=== PATIENT | male | born 1950 | race Caucasian/White ===

== ENCOUNTER 2020-05-15 13:31 | Outpatient (REF) | payer MEDICARE, SELFPAY ==
--- NOTE | 2020-05-15 13:37 | XR_ITS ---
EXAMINATION: XR LUMBOSACRAL SPINE CLINICAL INFORMATION: Low back pain. COMPARISON: None TECHNIQUE: Three views of the lumbosacral spine. FINDINGS: There is normal lumbar lordosis. The vertebral heights, alignment and disc heights are normal. There is mild loss of disc heights. No visible acute fracture, dislocation or lytic process seen. There is aortoiliac bilateral graft stents. The paravertebral soft tissues are normal. XR/XR lumbar spine 2-3V IMPRESSION: Mild degenerative disc changes throughout lumbar spine. No visible acute fracture, dislocation or lytic process seen.
== END 2020-05-15 13:32 | disposition home or self-care (01) ==
LOC: HO.XRAY 13:31
PROVIDERS: PCP Internal Medicine; Visit Provider Internal Medicine
DX: M54.5 Low back pain (principal)
CPT/HCPCS: 72100

== ENCOUNTER 2020-05-27 12:52 | Outpatient (REF) | payer MEDICARE, SELFPAY ==
--- NOTE | 2020-05-27 | US_ITS ---
EXAMINATION: US SCROTUM CLINICAL INFORMATION: Pain in testicle. COMPARISON: Scrotal ultrasounds dated 02/20/2020 and 12/20/2012. TECHNIQUE: A sonogram of the scrotum was performed assessing allred-scale appearance and color Doppler flow. Spectral Doppler analysis of the arterial and venous flow were performed in the left testis. FINDINGS: RIGHT: Surgically absent. LEFT: Left testicle measures 4.31 x 1.90 x 3.32 cm, volume 14.2 mL. There is a 0.6 x 0.7 x 0.9 cm minimally complex cyst with single septation in the inferior left testicle. This is similar to previous exam. Spectral Doppler analysis of the arterial and venous flow is normal in the left testis. Left epididymal head is normal in size. The tail of the left epididymis appears slightly prominent and heterogeneous in echotexture with hyperechoic areas. This is similar to recent exam from February 2020. Left epididymal Doppler flow is normal. No left hydrocele or varicocele is seen. US/US scrotum IMPRESSION: Stable slightly complex left testicular cyst measuring 6 x 7 x 9 mm with single thin septation. Slightly prominent heterogeneous-appearing epididymal tail.
== END 2020-05-27 12:53 | disposition home or self-care (01) ==
LOC: HO.US 12:52
PROVIDERS: PCP Internal Medicine; Visit Provider Urology
DX: N50.819 Testicular pain, unspecified (principal)
CPT/HCPCS: 76870

== ENCOUNTER 2020-05-30 12:51 | Outpatient (REF) | payer MEDICARE, SELFPAY ==
[2020-05-30 14:41] LABS: MANUAL DIFF FLAG NO
[2020-05-30 14:48] LABS: Basophils Percent Auto 0.2 % (0-2); Eosinophils Absolute Auto 0.2 X10*3/uL (0.0-0.4); Eosinophils Percent Auto 3.1 % (0-4); Hematocrit 40.6 % (42-52); Hemoglobin 13.6 g/dl (14.0-18.0); Imm Gran Abs Auto 0.03 X10*3/uL (0.00-0.03); Imm Gran Pct Auto 0.6 % (0.0-0.4); Lymphocytes Percent Auto 21.1 % (20-40); Mean Corpuscular HGB Conc 33.5 g/dl (31.0-36.0); Mean Corpuscular Volume 98.5 fL (80-98); Mean Platelet Volume 9.1 fL (9.4-12.4); Monocytes Absolute Auto 0.3 X10*3/uL (0.1-1.2); Monocytes Percent Auto 6.8 % (2-11); Neutrophils Absolute Auto 3.3 X10*3/uL (2.0-8.3); Neutrophils Percent Auto 68.2 % (45-73); Platelet Count 167 X10*3/uL (160-400); Red Blood Count 4.12 X10*6/uL (4.60-5.80); White Blood Count 4.9 X10*3/uL (4.8-10.8)
[2020-05-30 14:53] LABS: Glucose Urine UA NEG (NEG); Leukocyte Esterase Urine NEG (NEG); Nitrite Urine NEG (NEG); Urine Blood 2+ (NEG); Urine Ketones NEG (NEG); Urine Protein TRACE MG/DL (NEG-TRACE)
[2020-05-30 14:54] LABS: Appearance Urine CLEAR; Color Urine YELLOW
[2020-05-30 15:00] LABS: Squamous Epithelial Cell Urine TRACE /LPF; WBC Urine 0-2 /HPF (0-4)
[2020-05-30 15:18] LABS: Alanine Aminotransferase 12 U/L (0-40); Albumin Level 4.2 g/dL (3.5-5.0); Alkaline Phosphatase 75 U/L (39-117); Anion Gap 15 (12-20); Aspartate Amino Transferase 15 U/L (5-37); Bilirubin Total 0.4 mg/dL (0.0-1.0); Blood Urea Nitrogen 23 mg/dL (9-16); Calcium 8.8 mg/dL (8.4-10.2); Carbon Dioxide 26 mmol/L (22-29); Chloride 100 mmol/L (96-108); Estimated Glomerular Filt Rate 45; Glucose Random 92 mg/dL (60-115); Potassium 4.7 mmol/l (3.3-5.1); Sodium 136 mmol/L (135-145); Total Protein 7.3 g/dL (6.5-8.0)
[2020-05-30 15:30] LABS: Thyroid Stimulating Hormone 1.25 uIU/mL (0.32-4.0)
== END 2020-05-30 12:52 | disposition home or self-care (01) ==
LOC: HO.LAB 12:51
PROVIDERS: PCP Internal Medicine; Visit Provider Internal Medicine
DX: I71.4 Abdominal aortic aneurysm, without rupture (principal); F41.9 Anxiety disorder, unspecified; M54.5 Low back pain
CPT/HCPCS: 36415; 80053; 81001; 84443; 85025

== ENCOUNTER 2020-06-18 12:38 | Outpatient (REF) | payer MEDICARE, SELFPAY ==
[2020-06-18 14:26] LABS: Anion Gap 14 (12-20); Blood Urea Nitrogen 19 mg/dL (9-16); Calcium 9.3 mg/dL (8.4-10.2); Carbon Dioxide 26 mmol/L (22-29); Chloride 101 mmol/L (96-108); Estimated Glomerular Filt Rate 51; Potassium 4.9 mmol/l (3.3-5.1); Sodium 136 mmol/L (135-145)
[2020-06-18 14:43] LABS: Glucose Urine UA NEG (NEG); Leukocyte Esterase Urine NEG (NEG); Nitrite Urine NEG (NEG); Specific Gravity - Urine <= 1.005 (1.005-1.025); Urine Blood 2+ (NEG); Urine Ketones NEG (NEG); Urine Protein 1+ MG/DL (NEG-TRACE)
[2020-06-18 14:49] LABS: Appearance Urine CLEAR; Color Urine YELLOW
[2020-06-18 15:07] LABS: WBC Urine 0 /HPF (0-4)
[2020-06-18 15:20] LABS: Creatinine Urine 23.55 mg/dL; Protein/Creatinine Ratio, Ur 1.49 (<0.2); Total Protein Urine Random 35 mg/dL (<12)
== END 2020-06-18 12:39 | disposition home or self-care (01) ==
LOC: HO.LAB 12:38
PROVIDERS: PCP Internal Medicine; Visit Provider Internal Medicine Hypertension Specialist
DX: I13.10 Hypertensive heart and chronic kidney disease without heart failure, with stage 1 through stage 4 chronic kidney disease, or unspecified chronic kidney disease (principal); I71.4 Abdominal aortic aneurysm, without rupture; Q63.1 Lobulated, fused and horseshoe kidney
CPT/HCPCS: 80051; 81001; 82310; 82565; 84156; 84520

== ENCOUNTER → 2020-08-02 13:26 | Outpatient (BNVA) | payer MEDICARE, SELFPAY | PROVIDERS: PCP Internal Medicine; Referring Provider Internal Medicine; Visit Provider Urology | DX: Z76.89 Persons encountering health services in other specified circumstances (principal) | CPT/HCPCS: Q3014 ==

== ENCOUNTER → 2020-08-05 13:10 | Outpatient (BNVA) | payer MEDICARE, SELFPAY | PROVIDERS: PCP Internal Medicine; Visit Provider Internal Medicine Cardiovascular Disease | DX: R00.2 Palpitations (principal); R06.02 Shortness of breath; Z95.2 Presence of prosthetic heart valve | CPT/HCPCS: 93005; 99212 ==

== ENCOUNTER → 2020-08-12 09:16 | Outpatient (REF) | payer MEDICARE, SELFPAY ==
--- NOTE | 2020-08-12 09:25 | CA_ITS ---
Transthoracic Echocardiogram Patient (Last, First, Middle): Sander Carpio J Gender: Male Date of : 1950 Age: 69 Procedure Date: 08/12/2020 Procedure Type: Transthoracic Echocardiogram Location: OP Height: 187.96 cm Weight: 88.45 kg BSA: 2.15 m2 Heart Rate: bpm BP: 128 / 80 mmHg Window Treatment Installer: Referring MD: Skinny Randhawa MD Symptoms: Z95.2 - Presence of prosthetic heart valve Study Quality: Fair ECG Rhythm: Sinus Conclusions: - The left ventricular systolic function is normal. The visually estimated ejection fraction is between 60-65%. - By history, bioprosthetic aortic valve. Based on gradients, normal function. Findings Left Ventricle Normal left ventricular cavity size. There is mildly increased left ventricular wall thickness. The left ventricular systolic function is normal. The visually estimated ejection fraction is between 60-65%. There is no evidence of regional wall motion abnormalities. Diastolic function is normal for age. Right Ventricle The right ventricle was not well visualized. Normal right ventricular cavity size. Likely normal function. Atria The left atrium is normal in size. The right atrium is normal in size. Aortic Valve The prosthetic aortic valve appears to be functioning normally. The aortic valve was not well visualized. The peak aortic velocity is 2.18 m/s with a calculated peak gradient of 19 mmHg. The mean gradient is 12 mmHg. The aortic valve area is 1.68 cm2. There is no aortic valve regurgitation. By history bioprosthetic aortic valve. Mitral Valve The mitral valve appears normal. There is no mitral valve regurgitation. There is no mitral valve stenosis. Pulmonic Valve The pulmonic valve was not well visualized. Tricuspid Valve There is trace tricuspid valve regurgitation. The pulmonary artery systolic pressure is normal. Great Vessels The aorta was not well visualized. The aortic annulus is normal in size. Venous The inferior vena cava is normal in size and collapses greater than 50% with inspiration. Pericardium/Pleural There is no evidence of pericardial effusion. Prior Study Comparison No significant change compared to prior study dated: 07/26/2019. Measurements 2D Linear Measurements IVSd: 1.22 0.6-0.9/0.6-1.0 cm LVIDd: 4.17 3.9-5.3/4.2-5.9 cm LVIDd Index: 1.94 2.4-3.2/2.2-3.1 cm/m2 LVIDs: 2.72 2.0-3.6 cm LVPWd: 1.26 0.7-1.1 cm Ao Root: 2.80 2.1-3.5 cm LA Diam: 3.60 2.7-3.8/3.0-4.0 cm LAIDs Index: 1.67 1.5-2.3 cm/m2 LV Mass: 230.43 67-162/88-224 g LV Mass Index: 107.18 43-95/49-115 g/m2 LVOT Diam: 2.00 3.0+(-)1.3 cm 2D Systolic Function EF 4C: 49.50 >55% EF 2C: 60.10 >55% Mitral Valve MV Pk E: 0.52 MV PK A: 0.68 MV Decel Time: 290.00 E/A: 0.80 E'Lateral: 10.30 E'Medial: 4.35 E/E' Med: 11.90 E/E' Lat: 5.00 PHT: 85.00 MVA PHT: 2.59 Decel [place]: 1.79 Aortic Valve AoV Pk James: 2.18 AoV Mn James: 1.61 AoV VTI: 0.54 AoV Pk Grad: 19.00 Aov Mn Grad: 12.00 TANG Cont.VTI: 1.68 LVOT LVOT Pk James: 1.15 LVOT Mn James: 0.90 LVOT VTI: 0.29 LVOT Pk Grad: 5.00 LVOT Mn Grad: 4.00 LVOT Diam: 2.00 LVOT Area: 3.14 Diastolic Function MV Pk E: 0.52 MV Pk A: 0.68 E/A: 0.80 E'Medial: 4.35 E/E' Med: 11.90 E' Laterial: 10.30 E/E' Lat: 5.00 Tricuspid Valve TR Pk James: 2.22 TR Pk Grad: 20.00 RA Press: 3.00 RVSP: 23.00 Great Vessels Aorta Ao Root-2D: 2.80 2.0-3.7 cm Pulmonary Valve PV Pk James: 0.79 Peak PV Grad: 2.00 Updated in Other Vendor System with Status of Final Elgin Olsen MD electronically signed on 08/13/2020 11:59:05 AM with status of Final
== END ==
LOC: HO.CARD 09:16
PROVIDERS: PCP Internal Medicine; Visit Provider Internal Medicine Cardiovascular Disease
DX: Z95.2 Presence of prosthetic heart valve (principal)
CPT/HCPCS: 93306

== ENCOUNTER → 2020-09-10 15:25 | Outpatient (BNVA) | payer MEDICARE, SELFPAY | PROVIDERS: PCP Internal Medicine; Visit Provider Internal Medicine Gastroenterology | DX: K59.00 Constipation, unspecified (principal) | CPT/HCPCS: 99212 ==

== ENCOUNTER 2020-10-24 08:58 | Outpatient (REF) | payer MEDICARE, SELFPAY ==
[2020-10-24 09:57] LABS: Basophils Percent Auto 0.2 % (0-2); Eosinophils Absolute Auto 0.1 X10*3/uL (0.0-0.4); Eosinophils Percent Auto 2.8 % (0-4); Hematocrit 38.3 % (42-52); Hemoglobin 12.5 g/dl (14.0-18.0); Imm Gran Abs Auto 0.01 X10*3/uL (0.00-0.03); Imm Gran Pct Auto 0.2 % (0.0-0.4); Lymphocytes Absolute Auto 0.6 X10*3/uL (1.2-4.9); Lymphocytes Percent Auto 14.7 % (20-40); MANUAL DIFF FLAG SCAN; Mean Corpuscular HGB Conc 32.6 g/dl (31.0-36.0); Mean Corpuscular Hemoglobin 32.1 pg (27.0-33.0); Mean Corpuscular Volume 98.5 fL (80-98); Mean Platelet Volume 8.6 fL (9.4-12.4); Monocytes Absolute Auto 0.3 X10*3/uL (0.1-1.2); Monocytes Percent Auto 6.8 % (2-11); Neutrophils Absolute Auto 3.2 X10*3/uL (2.0-8.3); Neutrophils Percent Auto 75.3 % (45-73); Platelet Count 159 X10*3/uL (160-400); Red Blood Count 3.89 X10*6/uL (4.60-5.80); Red Cell Distribution Width 13.1 % (11.0-16.0); SCAN SMEAR FLAG 1; White Blood Count 4.3 X10*3/uL (4.8-10.8)
[2020-10-24 10:09] LABS: Alanine Aminotransferase 10 U/L (0-40); Albumin Level 4.2 g/dL (3.5-5.0); Alkaline Phosphatase 78 U/L (39-117); Anion Gap 11 (12-20); Aspartate Amino Transferase 14 U/L (5-37); Bilirubin Total 0.3 mg/dL (0.0-1.0); Blood Urea Nitrogen 19 mg/dL (9-16); Calcium 9.3 mg/dL (8.4-10.2); Carbon Dioxide 29 mmol/L (22-29); Chloride 102 mmol/L (96-108); Cholesterol 228 mg/dL; Estimated Glomerular Filt Rate 46; Glucose Random 111 mg/dL (60-115); HDL Cholesterol 53 mg/dL; LDL Cholesterol Calculated 158 mg/dl; Potassium 5.2 mmol/L (3.3-5.1); Sodium 137 mmol/L (135-145); Total Protein 7.2 g/dL (6.5-8.0); Triglycerides 85 mg/dL
[2020-10-24 10:11] LABS: B Type Natriuretic Peptide 109 pg/mL (<100)
[2020-10-24 10:26] LABS: SLIDE REVIEW VERIFIED
[2020-10-24 10:42] LABS: Free T4 (Free Thyroxine) 0.95 ng/dL (0.71-1.85); Prostate Specific Antigen Scr 10.12 ng/mL (<0.05-4.0); Thyroid Stimulating Hormone 1.18 uIU/mL (0.32-4.0)
[2020-10-24 10:54] LABS: Folate 8.3 ng/mL (> or = 4.0); Vitamin B12 202 pg/mL (200-900)
== END 2020-10-24 08:59 | disposition home or self-care (01) ==
LOC: HO.LAB 08:58
PROVIDERS: PCP Internal Medicine; Visit Provider Internal Medicine
DX: Z12.5 Encounter for screening for malignant neoplasm of prostate (principal); I71.4 Abdominal aortic aneurysm, without rupture; E78.00 Pure hypercholesterolemia, unspecified
CPT/HCPCS: 36415; 80053; 80061; 82607; 82746; 83880; 84153; 84439; 84443; 85025

== ENCOUNTER 2020-10-28 07:58 | Outpatient (REF) | payer MEDICARE, SELFPAY ==
--- NOTE | ~2020-10-28 | CT_ITS ---
EXAMINATION: CT ABDOMEN AND PELVIS WITH CONTRAST CLINICAL INFORMATION: Benign prostatic hyperplasia. Allergic to contrast. COMPARISON: CT abdomen and pelvis 04/09/2020 TECHNIQUE: Multidetector volumetric images were obtained from the superior aspect of the liver through the pubic symphysis following administration 85 mL of Omnipaque 350 intravenous contrast. Sagittal and coronal reformatted images were obtained on the technologist's workstation. Oral contrast: No. This CT examination was performed using dose optimization techniques as appropriate, variously including the following: *Automated exposure control *Adjustment of mA and/or kV according to patient size (this includes techniques or standardized protocols for targeted exams where dose is matched to indication/reason for exam; i.e. extremities or head) *Use of iterative reconstruction technique DLP: 761 mGy-cm FINDINGS: LUNG BASES: Emphysema. Heart size is normal. LIVER, GALLBLADDER, AND BILIARY TREE: The liver is normal in size, shape, and attenuation. No focal hepatic lesion or biliary ductal dilatation is present. The gallbladder is unremarkable with no evidence of radiopaque gallstones, gallbladder wall thickening, or obvious pericholecystic inflammatory changes. PANCREAS: Unremarkable. SPLEEN: Unremarkable. ADRENAL GLANDS: The adrenal glands are unremarkable. 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 No hydronephrosis seen. BLADDER: Unremarkable. GASTROINTESTINAL TRACT: There is scattered stool, diverticula and gas seen throughout the colon without any significant distention. The small bowel loops are normal caliber. The appendix is normal caliber. ABDOMINAL WALL: No significant hernia is appreciated. LYMPH NODES: Normal. VASCULAR: There is infrarenal aneurysmal dilatation of the abdominal aorta with the largest diameter measuring 9.10 x 8.4 cm, similar to previous study. There is an aortoiliac graft stent extending above the renal arteries into the common iliac arteries. There is circumferential thrombus surrounding the aortic graft and within left common iliac and abdominal aortic graft. There is normal patency of both common iliac arteries and the lumen within the aortic graft. PELVIC VISCERA: There is diffuse heterogenous enlarged prostate gland extending into the base of bladder. The periprostatic fat planes are preserved. OSSEOUS STRUCTURES: No lytic or sclerotic process seen. CT/CT abdomen pelvis w con IMPRESSION: No acute intra-abdominal process seen. Colonic diverticulosis without diverticulitis. Mvkunwaf-qi-lcagzj prostate enlargement with heterogeneity extending into the base of bladder. Stable infra-abdominal aortic aneurysm and aortoiliac graft stent present with intraluminal and extraluminal thrombus.
== END 2020-10-28 07:59 | disposition home or self-care (01) ==
LOC: HO.CT 07:58
PROVIDERS: Visit Provider Internal Medicine
DX: I71.4 Abdominal aortic aneurysm, without rupture (principal); N40.0 Benign prostatic hyperplasia without lower urinary tract symptoms
CPT/HCPCS: 74177; Q9967

== ENCOUNTER 2020-11-11 10:51 | Outpatient (REF) | payer MEDICARE, SELFPAY ==
--- NOTE | ~2020-11-11 | CT_ITS ---
EXAMINATION: CT CHEST SCREENING CLINICAL INFORMATION: History of nicotine. COMPARISON: CT chest 09/08/2019. TECHNIQUE: Multidetector volumetric CT imaging of the chest is performed without contrast using low dose technique. Additional 2D coronal and sagittal reformatted images and axial 3D maximum intensity projection (MIP) images are generated on the CT workstation. This CT examination was performed using dose optimization techniques as appropriate, variously including the following: *Automated exposure control *Adjustment of mA and/or kV according to patient size (this includes techniques or standardized protocols for targeted exams where dose is matched to indication/reason for exam; i.e. extremities or head) *Use of iterative reconstruction technique DLP: 65 mGy-cm. FINDINGS: LUNGS: Lungs are well expanded with mild atelectatic changes right upper lobe posterior segment. There is a new 3 mm nodule right upper lobe axial image 154/6, a 6 mm nodule right upper lobe axial image 169/6, a 3 mm nodule right lower lobe adjacent to major fissure axial image 383/6, stable and fine nodular thickening right major fissure axial image 293/6. No acute pneumonic consolidation seen. MEDIASTINUM: The thyroid lobes are symmetrical and normal. The central trachea and the bronchi are widely patent. There is atherosclerotic calcification of thoracic arch without aneurysmal dilatation. There is a benign pretracheal 1.6 cm wide lymph node with central fatty hilum. Heart size and the great vessels are normal caliber. No pericardial effusion seen. PLEURA: There is no pleural effusion. No pleural mass or thickening. AXILLA: No lymphadenopathy. UPPER ABDOMEN: Visualized liver, spleen, pancreas and bilateral adrenal glands are unremarkable. Is aneurysmal dilatation of the proximal abdominal aorta with an aortic stent in place, similar to previous study. OSSEOUS STRUCTURES: There is moderate spondylosis dorsal spine. No lytic process seen. There are median sternotomy sutures from previous intervention. CT/CT lung screening IMPRESSION: There are 2 new nodules in the right upper lobe. The other 2 nodules including the major fissure nodule, likely lymph node, are stable. ASSESSMENT: Lung-RADS category 3: Probably Benign. RECOMMENDATION: 6-month low-dose CT chest.
== END 2020-11-11 10:52 | disposition home or self-care (01) ==
LOC: HO.CT 10:51
PROVIDERS: Visit Provider Surgery
DX: Z12.2 Encounter for screening for malignant neoplasm of respiratory organs (principal); Z87.891 Personal history of nicotine dependence
CPT/HCPCS: 71271

== ENCOUNTER 2020-12-11 07:33 | Day surgery (SDC) | payer MEDICARE, SELFPAY ==
[2020-12-04 14:50] VITALS: BMI 24.6
--- NOTE | 2020-12-10 09:59 | P.CONAN_ITS ---
Documented by User: Diane Santiago 12/10/20 10:21 HPI - Anesthesia Eval Consult details Narrative: 70yo M for Upper Endoscopy and Colonoscopy AAA s/p repair 2012, endoleak with repair/graft 2016, imaging shows patent endograft, sac stable per vascu S/P AVR 2014 *mult med allergies* PMFSH Active Problems Active Problems: All Active Problems (Updated 12/04/20 @ 14:47 by Sophia Salas) Constipation (Acute) Low back pain (Acute) Palpitations (Acute) SOB (shortness of breath) on exertion (Acute) Enlarged prostate (Acute) Renal insufficiency (Acute) Vitamin B 12 deficiency (Acute) Pulmonary nodules (Acute) Hypercholesterolemia (Acute) Personal history of nicotine dependence (Acute) S/P AVR (Acute) Testicular cyst (Acute) Elevated PSA (Acute) AAA (abdominal aortic aneurysm) (Acute) COPD (chronic obstructive pulmonary disease) (Acute) Anxiety (Acute) GERD (gastroesophageal reflux disease) (Acute) Past Medical History Medical History (Updated 12/04/20 @ 14:47 by Sophia Salas) AAA (abdominal aortic aneurysm) Anxiety Aortic stenosis BPH (benign prostatic hyperplasia) COPD (chronic obstructive pulmonary disease) Depression Elevated PSA Erectile dysfunction GERD (gastroesophageal reflux disease) History of TMJ disorder Horseshoe kidney Hypercholesterolemia Melanoma Personal history of nicotine dependence Polyp of duodenum Testicular cyst Tubular adenoma of colon Family History Family History Father No problems noted. Mother Alcoholism Paternal Uncle Myocardial infarction Surgical History Surgical History (Updated 12/04/20 @ 14:45 by Sophia Salas) Chronic epididymitis History of esophagogastroduodenoscopy (EGD) History of melanoma excision History of repair of rotator cuff History of transurethral resection of prostate Hx of colonoscopy S/P AVR Social History Social History Alcohol intake: current Alcohol intake frequency: holidays/special occasions only Are you DNR?: No Advance Directives: No Advance Directives Information Provided: No Advance Directives on File: No Recently lost weight without trying: No Eating poorly because of decreased appetite: No Nutrition Risks: No Nutritional Risk Meds Allergies Allergy/AdvReac Type Severity Reaction Status Date / Time cephalexin [CEPHALEXIN] Allergy Intermediate HIVES/ITCH Verified 12/04/20 14:27 naproxen [NAPROXEN] Allergy Intermediate RASH/SHAKES Verified 12/04/20 14:27 ,SOB atorvastatin Allergy Unknown muscle px Verified 12/04/20 14:27 clindamycin Allergy Unknown gerd Verified 12/04/20 14:27 ibuprofen [From Motrin] Allergy Unknown RASH,SOB, Verified 12/04/20 14:27 rash, rash penicillin V Allergy Unknown rash Verified 12/04/20 14:27 pravastatin Allergy Unknown unknown Verified 12/04/20 14:27 aspirin AdvReac Unknown Unknown Verified 12/04/20 14:27 Home Medications Medication Instructions Recorded Confirmed Last Taken Type acetaminophen 325 mg capsule 325 mg PO QID PRN 05/10/20 12/04/20 Unknown History albuterol sulfate 90 mcg/actuation 2 puff INHALATION Q4-6H PRN 05/10/20 12/04/20 12/11/20 History aerosol inhaler amitriptyline 50 mg tablet 50 mg PO BEDTIME 05/10/20 12/04/20 Unknown History coenzyme [id number]-[id number] E 100 mg-100 cap PO 05/10/20 11/15/20 Unknown History unit capsule dicyclomine 20 mg tablet 20 mg PO TID 05/10/20 12/04/20 Unknown History methylcellulose (laxative) 500 mg 500 mg PO DAILY 05/10/20 12/04/20 Unknown History tablet rosuvastatin 10 mg tablet 10 mg PO DAILY 05/10/20 12/04/20 Unknown History wleulgmtwd-zaztwtqmfgixw-osuebhfs 1 tab PO Q8H PRN 08/05/20 12/04/20 Unknown History 50 mg-325 mg-40 mg tablet clonazepam 1 mg tablet 1 mg PO BID 08/05/20 12/04/20 12/11/20 History lactulose 10 gram/15 mL oral 30 ml PO BID PRN 08/05/20 12/04/20 Unknown History solution Exam Exam Date and Time: December 10, 2020 0959 Height,Weight and Vital Signs: Height 6 ft 2 in Weight 87.09 kg Pertinent Lab Results Pertinent Lab Results: Laboratory Tests 10/24/20 10/24/20 09:12 09:12 WBC 4.3 L Hgb 12.5 L Hct 38.3 L Plt Count 159 L Sodium 137 Potassium 5.2 H Chloride 102 Carbon Dioxide 29 BUN 19 H Creatinine 1.52 H Narrative Narrative: EKG 07/2020 Baseline artifact with normal sinus rhythm with first-degree AV block with no significant ST T wave changes ECHO 07/2020 Conclusions: - The left ventricular systolic function is normal. The visually estimated ejection fraction is between 60-65%. - By history, bioprosthetic aortic valve. Based on gradients, normal function. CT abdomen pelvis w con 10/2020 IMPRESSION: No acute intra-abdominal process seen. Colonic diverticulosis without diverticulitis. Xutbvzzg-oe-tchdpx prostate enlargement with heterogeneity extending into the base of bladder. Stable infra-abdominal aortic aneurysm and aortoiliac graft stent present with intraluminal and extraluminal thrombus. Assessment and Plan Assessment Anesthesia Assessment: Chart Reviewed Documented by User: Analilia Au 12/11/20 08:02 [facility] Past Medical History Medical History (Updated 12/04/20 @ 14:47 by Sophia Salas) AAA (abdominal aortic aneurysm) Anxiety Aortic stenosis BPH (benign prostatic hyperplasia) COPD (chronic obstructive pulmonary disease) Depression Elevated PSA Erectile dysfunction GERD (gastroesophageal reflux disease) History of TMJ disorder Horseshoe kidney Hypercholesterolemia Melanoma Personal history of nicotine dependence Polyp of duodenum Testicular cyst Tubular adenoma of colon Family History Family History Father No problems noted. Mother Alcoholism Paternal Uncle Myocardial infarction Surgical History Surgical History (Updated 12/04/20 @ 14:45 by Sophia Salas) Chronic epididymitis History of esophagogastroduodenoscopy (EGD) History of melanoma excision History of repair of rotator cuff History of transurethral resection of prostate Hx of colonoscopy S/P AVR Social History Social History Alcohol intake: current Alcohol intake frequency: holidays/special occasions only Are you DNR?: No Advance Directives: No Advance Directives Information Provided: No Advance Directives on File: No Recently lost weight without trying: No Eating poorly because of decreased appetite: No Nutrition Risks: No Nutritional Risk Meds Allergies Allergy/AdvReac Type Severity Reaction Status Date / Time cephalexin [CEPHALEXIN] Allergy Intermediate HIVES/ITCH Verified 12/04/20 14:27 naproxen [NAPROXEN] Allergy Intermediate RASH/SHAKES Verified 12/04/20 14:27 ,SOB atorvastatin Allergy Unknown muscle px Verified 12/04/20 14:27 clindamycin Allergy Unknown gerd Verified 12/04/20 14:27 ibuprofen [From Motrin] Allergy Unknown RASH,SOB, Verified 12/04/20 14:27 rash, rash penicillin V Allergy Unknown rash Verified 12/04/20 14:27 pravastatin Allergy Unknown unknown Verified 12/04/20 14:27 aspirin AdvReac Unknown Unknown Verified 12/04/20 14:27 Home Medications Medication Instructions Recorded Confirmed Last Taken Type acetaminophen 325 mg capsule 325 mg PO QID PRN 05/10/20 12/04/20 Unknown History albuterol sulfate 90 mcg/actuation 2 puff INHALATION Q4-6H PRN 05/10/20 12/04/20 12/11/20 History aerosol inhaler amitriptyline 50 mg tablet 50 mg PO BEDTIME 05/10/20 12/04/20 Unknown History coenzyme Q80-ynxxiwl E 100 mg-100 cap PO 05/10/20 11/15/20 Unknown History unit capsule dicyclomine 20 mg tablet 20 mg PO TID 05/10/20 12/04/20 Unknown History methylcellulose (laxative) 500 mg 500 mg PO DAILY 05/10/20 12/04/20 Unknown History tablet rosuvastatin 10 mg tablet 10 mg PO DAILY 05/10/20 12/04/20 Unknown History wzzhqifijx-uasosomwfykpn-nhbjxdei 1 tab PO Q8H PRN 08/05/20 12/04/20 Unknown History 50 mg-325 mg-40 mg tablet clonazepam 1 mg tablet 1 mg PO BID 08/05/20 12/04/20 12/11/20 History lactulose 10 gram/15 mL oral 30 ml PO BID PRN 08/05/20 12/04/20 Unknown History solution Exam Airway Mallampati Class: II TM Dist: >3cm Neck ROM: Full Heart: RRR Lungs: CTA Assessment and Plan Assessment Anesthesia Assessment: Anesthesia Plan Discussed and Chart Reviewed Final Anesthetic Review NPO: Yes (Sip water with med) ASA Class: III Final Preanesthetic Review: No Changes in Pt Med Stat and Consent Obtained/Reviewed Patient Risk: Intermediate Procedure Risk: Intermediate Anesthetic Plan Anesthetic Plan: MAC: Disposition: Standard PACU
[2020-12-11 07:54] VITALS: BP 124/72; PULSE 73; RESP 16; TEMP 36.1; O2SAT 98
[2020-12-11] MEDS: Lactated Ringers 1,000 ML 100 ML IVCONT (08:11)
--- NOTE | 2020-12-11 08:38 | MHC.SHP ---
Pre-Procedural Eval Section B Chief Complaint: Abdominal pain, Constipation Relevant Family History (Specify if Yes): No Relevant Social History: None Present Medications: see Short Stay Collaborative assessment Medical History: Significant History (AAA (abdominal aortic aneurysm) Anxiety Aortic stenosis BPH (benign prostatic hyperplasia) COPD (chronic obstructive pulmonary disease) Depression Elevated PSA Erectile dysfunction GERD (gastroesophageal reflux disease) History of TMJ disorder Horseshoe kidney Hypercholesterolemia Melanoma Personal ) History of Previous Operations: Relevant previous surgery/procedure and date(s) (Chronic epididymitis History of esophagogastroduodenoscopy (EGD) History of melanoma excision History of repair of rotator cuff History of transurethral resection of prostate Hx of colonoscopy S/P AVR) Allergies: Allergies Allergy/AdvReac Type Severity Reaction Status Date / Time cephalexin [CEPHALEXIN] Allergy Intermediate HIVES/ITCH Verified 12/04/20 14:27 naproxen [NAPROXEN] Allergy Intermediate RASH/SHAKES Verified 12/04/20 14:27 ,SOB atorvastatin Allergy Unknown muscle px Verified 12/04/20 14:27 clindamycin Allergy Unknown gerd Verified 12/04/20 14:27 ibuprofen [From Motrin] Allergy Unknown RASH,SOB, Verified 12/04/20 14:27 rash, rash penicillin V Allergy Unknown rash Verified 12/04/20 14:27 pravastatin Allergy Unknown unknown Verified 12/04/20 14:27 aspirin AdvReac Unknown Unknown Verified 12/04/20 14:27 Review of Systems Sugical H&P ROS: Negative: Constitution, Cardiovascular, Respiratory, Neurological, Psychiatric, Hem-Onc, Allergic/Immunologic, Gastrointestinal, Genitourinary, Musculoskeletal, Integumentary, Endocrine and Eyes/Ears/Nose/Throat Exam Surgical H&P Exam: Normal: HEENT, Normal: Heart, Normal: Lungs, Normal: Extremities, Normal: Abdomen and Normal: Neurological and Significant Findings: Skin (hyperkeratosis right hand) Plan Diagnosis/Plan: Unchanged I have reviewed the history and physical and performed a pertinent physical examination on my patient. No changes have occurred unless specified.
--- NOTE | 2020-12-11 09:15 | PM.OP ---
Brief Operative Note Date of Service: 12/11/20 Pre-op diagnosis: hx of polyps Post-op diagnosis: same Procedure: see op note Surgeon: Espinoza Mcfarlane MD Anesthesia: MAC Was an Barber Or Beauty [employer] Manager used for this Procedure?: No Estimated blood loss (mL): 0 Condition: stable Disposition: PACU
--- NOTE | 2020-12-11 09:16 | P.OP_ITS ---
Operative Note Operative Note Date of Service: 12/11/20 Narrative: Operative Information Procedure Description: EGD, Colonoscopy FLEXIBLE TRANSORAL UPPER GASTROINTESTINAL ENDOSCOPY AND COLONOSCOPY PROCEDURE NOTE UPPER ENDOSCOPY Consent: Indications for the procedure and potential complications of bleeding, perforation, reaction to medications and missed diagnosis were discussed with the patient and informed consent was obtained. Instrument: Olympus GIF H 190 J mid size upper endoscope Monitoring: Vital signs and clinical assessment, continuous EKG monitoring, Pulse oximetry, Carbon Dioxide monitoring and blood pressure monitoring were done throughout the procedure. Procedure: The patient was placed in the left lateral decubitis position and pre-procedure medications were administered and a bite block was placed. The endoscope was inserted into the mouth and advanced under direct vision to the third part of duodenum. A careful inspection was made as the upper endoscope was withdrawn including a retroflexed examination of the proximal stomach; Findings and interventions are described below. Findings: Larynx:normal Esophagus: GE junction at 42 cm, diaphragm hiatus at 42 cm, mild esophagitis, possible short segment BArretts, Bx taken from GEJ. Also in proximal esophagus there was a soft nodular lesion about 8-10 mm removed with forceps. Stomach: Nodular mucosa. Biopsies were obtained. Grade 2 flap valve on retroflexed examination of the cardia. Duodenum: Normal bulb, x 2 sessile lesions in second part of duodenum, one was 8 mm and removed with forceps the other was about 10-12 mm and removed with cold snare Intervention: Biopsies, snare polypectomy as noted above COLONOSCOPY Instrument: Olympus variable stiffness pediatric scope 190L Colonoscopy Monitoring: Vital signs and clinical assessment, continuous EKG monitoring, Pulse oximetry, Carbon Dioxide monitoring and blood pressure monitoring were done throughout the procedure. Colon withdrawal time was 14 minutes. Procedure: The patient was placed in the left lateral decubitis position and pre-procedure medications were administered. After a digital rectal examination of the ano-rectum, the video colonoscope was inserted into the rectum and advanced through the colon to the cecum/TI. The colonoscope was slowly withdrawn in a retrograde panoramic fashion and the colon mucosa was carefully examined including a retroflexed view of the rectum. Findings and interventions are described below. Procedure Difficulty:easy Findings: Terminal Ileum-normal Cecum:normal Ascending Colon: 6-8 mm sessile polyp removed with forceps Transverse Colon -normal Descending Colon:normal Sigmoid Colon: diverticulosis noted, x 2 sessile polyps noted, 8 mm polyp removed with forceps and 10 mm polyp removed with cold snare Rectum: Retroflexion with moderate sized internal hemorrhoids, grade I Anorectum - normal Colon preparation: [place] Bowel Preparation Scale Right colon; 2 Transverse colon: 3 Left colon; 2 (0 = Unprepared colon segment with mucosa not seen due to solid stool that cannot be cleared. 1 = Portion of mucosa of the colon segment seen, but other areas of the colon segment not well seen due to staining, residual stool and/or opaque liquid. 2 = Minor amount of residual staining, small fragments of stool and/or opaque liquid, but mucosa of colon segment seen well. 3 = Entire mucosa of colon segment seen well with no residual staining, small fragments of stool or opaque liquid) Impression and Post Procedure Diagnosis: Endoscopy Findings: duodenal polyps possible barretts esophageal nodule Colonoscopy Findings: polyps internal hemorrhoids diverticular disease Plan: Await Pathology results Repeat EGD and Colonoscopy in 2 years or earlier if clinically indicated (EGD may be earlier pending path) High fiber diet leaflet avoid straining at stool, epsom salts and sitz bath, anusol supps or cream as needed Above findings were reviewed with the patient and relevant handouts were provided if indicated.
[2020-12-11 09:20] VITALS: BP 130/61; PULSE 59; RESP 16; TEMP 36.2; O2SAT 100
[2020-12-11 09:35] VITALS: BP 144/74; PULSE 57; RESP 18; TEMP 36.7; O2SAT 98
== END 2020-12-11 10:10 | disposition home or self-care (01) ==
PROVIDERS: PCP Internal Medicine; Visit Provider Internal Medicine Gastroenterology
PROC: (CPT 45385; principal; 2020-12-11 08:30)
DX: Z12.11 Encounter for screening for malignant neoplasm of colon (principal); Z86.010 Personal history of colon polyps; D12.2 Benign neoplasm of ascending colon; D12.5 Benign neoplasm of sigmoid colon; K57.30 Diverticulosis of large intestine without perforation or abscess without bleeding; K64.0 First degree hemorrhoids; K59.00 Constipation, unspecified; K22.70 Barrett's esophagus without dysplasia; K22.8 Other specified diseases of esophagus; D13.2 Benign neoplasm of duodenum; K44.9 Diaphragmatic hernia without obstruction or gangrene; K20.80 Other esophagitis without bleeding; I71.4 Abdominal aortic aneurysm, without rupture; J44.9 Chronic obstructive pulmonary disease, unspecified; Z79.899 Other long term (current) drug therapy; Z88.0 Allergy status to penicillin; Z88.1 Allergy status to other antibiotic agents; Z88.8 Allergy status to other drugs, medicaments and biological substances; Z85.820 Personal history of malignant melanoma of skin; Z87.891 Personal history of nicotine dependence
CPT/HCPCS: 45385; 45380; 43251; 43239; 88305; 88342

== ENCOUNTER → 2020-12-26 12:21 | Outpatient (BNVA) | payer MEDICARE, SELFPAY | PROVIDERS: PCP Internal Medicine; Referring Provider Internal Medicine; Visit Provider Physician Assistant ==

== ENCOUNTER → 2020-12-31 12:09 | Outpatient (BNVA) | payer MEDICARE, SELFPAY | PROVIDERS: PCP Internal Medicine; Referring Provider Internal Medicine; Visit Provider Physician Assistant | CPT/HCPCS: Q3014 ==